=== PATIENT | male | born 1995 | race African-American/Black ===

== ENCOUNTER 2021-06-25 10:55 | Emergency (ER) | payer SELFPAY ==
[2021-06-25] MEDS ORDERED: Ibuprofen 200 MG TAB ONE (11:50)
== END 2021-06-25 11:52 | disposition home or self-care (01) ==
LOC: BURERS 10:55
DX: R07.89 Other chest pain (principal); M62.838 Other muscle spasm; Z86.16 Personal history of COVID-19
CPT/HCPCS: 71045; 93005

== ENCOUNTER 2021-11-11 13:45 | Emergency (ER) | payer SELFPAY | END 2021-11-11 14:10 | disposition home or self-care (01) | LOC: BURERS 13:45 | DX: S46.811A Strain of other muscles, fascia and tendons at shoulder and upper arm level, right arm, initial encounter (principal); X50.0XXA Overexertion from strenuous movement or load, initial encounter; Y92.69 Other specified industrial and construction area as the place of occurrence of the external cause | CPT/HCPCS: 99283 ==

== ENCOUNTER 2022-01-10 14:11 | Emergency (ER) | payer SELFPAY | END 2022-01-10 14:59 | disposition home or self-care (01) | LOC: BURERS 14:11 | DX: M54.50 Low back pain, unspecified (principal); F17.210 Nicotine dependence, cigarettes, uncomplicated | CPT/HCPCS: 99283 ==

== ENCOUNTER 2022-10-14 07:33 | Emergency (ER) | payer BC, SELFPAY ==
[2022-10-14] MEDS ORDERED: Acetaminophen 325 MG TAB ONE (08:00)
[2022-10-14] MEDS ORDERED: traMADol HCl 50 MG TAB ONE (08:00)
[2022-10-14] MEDS ORDERED: Ketorolac Tromethamine 60 MG/2 ML VIAL ONE (08:05)
== END 2022-10-14 09:11 | disposition home or self-care (01) ==
LOC: BURERS 07:33
DX: M43.6 Torticollis (principal); J01.00 Acute maxillary sinusitis, unspecified; F17.210 Nicotine dependence, cigarettes, uncomplicated
CPT/HCPCS: 70450; 96372; J1885

== ENCOUNTER 2022-12-13 16:59 | Emergency (ER) | payer BC ==
[2022-12-13] MEDS ORDERED: Ketorolac Tromethamine 60 MG/2 ML VIAL ONE (17:12)
[2022-12-13] MEDS ORDERED: Cyclobenzaprine 10 MG TAB ONE (17:12)
== END 2022-12-13 17:23 | disposition home or self-care (01) ==
LOC: BURERS 16:59
DX: S16.1XXA Strain of muscle, fascia and tendon at neck level, initial encounter (principal); S29.012A Strain of muscle and tendon of back wall of thorax, initial encounter; F17.210 Nicotine dependence, cigarettes, uncomplicated; X50.0XXA Overexertion from strenuous movement or load, initial encounter; Y99.0 Civilian activity done for income or pay
CPT/HCPCS: 96372; 99283; J1885

== ENCOUNTER 2025-05-17 19:46 | Emergency (ER) | payer BC, OTHER ==
[2025-05-17] MEDS ORDERED: Ibuprofen 800 MG TAB ONE (20:17)
== END 2025-05-17 21:35 | disposition home or self-care (01) ==
LOC: BURERS 19:46
DX: S16.1XXA Strain of muscle, fascia and tendon at neck level, initial encounter (principal); M54.6 Pain in thoracic spine; F17.210 Nicotine dependence, cigarettes, uncomplicated; V49.50XA Passenger injured in collision with unspecified motor vehicles in traffic accident, initial encounter
CPT/HCPCS: 72125

== ENCOUNTER 2025-05-28 15:35 | Emergency (ER) | payer BC ==
[2025-05-28] MEDS ORDERED: Lidocaine Viscous Sol 2% 15 ml UD Cup ONE (15:59)
[2025-05-28] MEDS ORDERED: Lidocaine 1% PF 5 ML VIAL ONE (15:59)
[2025-05-28] MEDS ORDERED: Amoxicillin/Potassium Clav 875 MG TAB ONE (16:29)
== END 2025-05-28 16:42 | disposition home or self-care (01) ==
LOC: BURERS 15:35
DX: K04.7 Periapical abscess without sinus (principal); F17.210 Nicotine dependence, cigarettes, uncomplicated
CPT/HCPCS: 99282